=== PATIENT | female | born 1960 | race Caucasian/White ===

== ENCOUNTER 2017-03-26 08:41 | Observation (INO) ==
[2017-03-26] MEDS ORDERED: PANTOPRAZOLE 40 MG VIAL IV STA (09:17)
[2017-03-26] MEDS ORDERED: ONDANSETRON 4 MG/2 ML VIAL IV STA (09:17)
[2017-03-26] MEDS ORDERED: METOCLOPRAMIDE 10 MG/2 ML VIAL IV STA (09:17)
[2017-03-26] MEDS ORDERED: ASPIRIN 325 MG TABLET PO STA (09:17)
[2017-03-26] MEDS ORDERED: NITROGLYCERIN 2% OINT 1 INCH/GM PACK TOP STA (09:17)
[2017-03-26 09:23] LABS: Basophils % 0.1 % (0.0-0.8); Eosinophils % 0.1 % (0.00-10.9); Hematocrit 45.3 VOL% (35.7-47.0); Hemoglobin 15.7 GM/DL (12.0-16.0); Immature Granulocytes % 0.3 %; Immature Granulocytes Absolute 0.02 #; Lymphocytes # 2.4 10*3/uL (1.4-4.0); Lymphocytes % 32.3 % (21.3-54.2); Mean Corpuscular HGB Conc 34.7 GM/DL (32-36); Mean Corpuscular Hemoglobin 30 PG (27-34); Mean Corpuscular Volume 87.5 FL (87-102); Mean Platelet Volume 10.6 FL (9.6-12.0); Monocytes # 0.5 10*3/uL (0.11-0.8); Monocytes % 7.1 % (1.7-12.7); Neutrophils # 4.4 10*3/uL (1.4-7.4); Neutrophils % 60.1 % (38.7-73.9); Platelet Count 217 T/CUMM (130-400); Red Blood Count 5.18 MC/CUMM (3.8-5.5); Red Cell Distribution Width 11.9 % (9.3-17.3); White Blood Count 7.4 T/CUMM (4-12)
--- NOTE | 2017-03-26 09:26 | Emergency Department Note ---
Arrival - Arrival Chief Complaint: Chest Pain Stated Complaint: cp/sob ED Nursing Triage Note: PT C/O CHEST PAIN, SOB, AND UPPER BACK PAIN X2 WEEKS. + NAUSEA. PT IS OFF DIABETIC MEDICATION AT THIS TIME FOR FINANCIAL REASONS. Mode of Arrival: Wheelchair Limitations: No Limitations Source: Patient Time Seen by Provider: 03/26/17 09:16 - History of Present Illness HPI Narrative: This 56-year-old white female presents with 2 weeks of intermittent central chest pain radiating to the back. This has been associated with nausea but no shortness of breath, diaphoresis, or german vomiting. The patient states she has had a particularly bad problem with heartburn for the last 2 weeks following a bad bout of flu. Most notable is the fact the patient is diabetic and has not taken medication in some time. She denies polyuria polydipsia or polyphagia at this time. Currently she is pain-free and in no acute distress. She denies any prior history of cardiac disease or smoking but does have a strong family medical history for coronary artery disease.. Onset (ago): day(s) (Patient presents 2 days post onset of symptoms) Allergies/Adverse Reactions: Allergies Allergy/AdvReac Type Severity Reaction Status Date / Time adhesive tape Allergy Mild RASH Verified 03/26/17 08:59 Home Medications: Home Medications Medication Instructions Recorded Confirmed Type No Known Home Medications [No 04/29/16 04/29/16 History Known Home Medications] Review of System - Review of System 12 point system: reviewed and no additional remarkable complaints except as stated - Review of System Constitutional: Present: as per HPI Respiratory: Present: as per HPI Cardiovascular: Present: as per HPI Gastrointestinal: Present: as per HPI Endocrine: Present: as per HPI Medical,Surgical,& Family Hx - Medical History Cardio: History of: Hypertension Endocrine: History of: Diabetes Mellitus (NIDDM) - Surgical History Reproductive Surgeries: Surgical HX of;: Gynecologic Surgery - Social History Smoking Status: Never smoker Frequency of Alcohol Use: None Type of Drug Use: None Exam Physical Examination: GENERAL: Obese white female in no acute distress. HEENT: Normocephalic. No trauma. Moist mucous membranes. EOMI. PERRLA. ENT NML NECK: Supple. No adenopathy. CARDIAC: Regular. No murmurs. Heart rate 75 CHEST: Clear to auscultation. No respiratory distress. O2 sat 90% ABDOMEN: Soft. Nontender. Active bowel sounds. EXTREMITIES: No trauma. Normal ROM. No pedal edema. SKIN: No diaphoresis. No rash. NEURO: Alert. Neuro intact no focal deficits. Vital Signs: Vital Signs Temperature 98.0 F 03/26/17 09:00 Pulse Rate 75 03/26/17 09:00 Respiratory Rate 20 03/26/17 09:00 Blood Pressure 163/81 03/26/17 09:00 O2 Sat by Pulse Oximetry 100 03/26/17 09:00 Course - Reevaluation(s) Reevaluation #1: Advised patient with her cardiac symptoms, diagnostic testing findings and laboratory abnormalities that hospitalization at least overnight is warranted for further evaluation. - Consultations Consultation #1: Discussed with hospitalist service who will admit for further evaluation treatment. Results - Labs CBC & BMP: 03/26/17 09:13 03/26/17 09:24 - Impressions EKG: Sinus rhythm at 70 with normal IL interval and QRS duration. 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 Diffuse nonspecific ST changes without any acute injury pattern noted. Disposition Clinical Impression: Uncontrolled diabetes, Chest pain
[2017-03-26] MEDS ORDERED: ONDANSETRON 4 MG/2 ML VIAL ONE (09:40)
[2017-03-26] MEDS ORDERED: METOCLOPRAMIDE 10 MG/2 ML VIAL ONE (09:40)
[2017-03-26] MEDS ORDERED: NITROGLYCERIN 2% OINT 1 INCH/GM PACK TOP ONE (09:40)
[2017-03-26] MEDS ORDERED: PANTOPRAZOLE 40 MG VIAL IV ONE (09:40)
[2017-03-26] MEDS ORDERED: ASPIRIN 325 MG TABLET ONE (09:40)
--- NOTE | 2017-03-26 09:40 | XRay Report ---
History is chest pain Comparison 03/29/2011 The heart is enlarged. No overt congestive failure or confluent infiltrates seen Impression: Cardiomegaly without overt CHF PROCEDURE INTERPRETED AT [facility] DEPARTMENT OF RADIOLOGY Final Report Signed by: Dr. Carolina Decker
[2017-03-26 10:10] LABS: Alanine Aminotransferase 21 U/L (13-56); Albumin 3.4 G/DL (3.4-5.0); Alkaline Phosphatase 153 U/L (45-117); Amylase 28 U/L (25-115); Aspartate Amino Transferase 7 U/L (0-37); Blood Urea Nitrogen 11 MG/DL (7-18); Calcium 8.6 MG/DL (8.5-10.1); Glucose 453 MG/DL (74-106); Osmolality,Calculated 284.4 MOS/KG (273-304); Potassium 4.3 MMOL/L (3.5-5.1); Sodium 133 MMOL/L (136-145); Total Protein 6.5 G/DL (6.4-8.3); Troponin I Only < 0.015 NG/ML (0.00-0.045)
[2017-03-26 10:20] LABS: Apearance,Urine CLEAR (Clear); Bilirubin,Urine Negative (Negative); Blood, Urine Negative (Negative); Glucose,Urine (UA) >=500 mg/dL (Negative); Ketones,Urine 5 mg/dL (Negative); Nitrite,Urine Negative (Negative); Protein,Urine Negative; RBC,Urine <1 /HPF (0-4); Squamous Epithelial Cell,Urine Occasional /HPF (0-10); Urine Color Straw (Yellow); Urine Urobilinogen < 2.0 EU/DL (0.2-1.0); WBC,Urine 1 /HPF (0-6)
[2017-03-26 10:23] LABS: Barbiturates Screen,Urine Negative (Negative); Benzodiazepines Screen,Urine Negative (Negative); Cannabinoid Screen,Urine Negative (Negative); Opiate Screen,Urine Negative (Negative); Phencyclidine Screen,Urine Negative (Negative)
--- NOTE | 2017-03-26 11:41 | Hospitalist History & Physical ---
Assessment and Plan - Time spent with patient Time spent with patient: Greater than 30 minutes (1) Chest pain Status: Acute Assessment and plan: Patient with risk factors significant for: Obesity, family history, hypertension , diabetes mellitus. Presents with 2 weeks of intermittent chest pain and associated shortness of breath. Admit to monitored bed for observation. Trend cardiac enzymes and EKGs. Order echocardiogram. Cardiology consultation. Current Visit: Yes (2) Hypertension Status: Acute Current Visit: Yes (3) Hyperglycemia due to type 2 diabetes mellitus Status: Acute Assessment and plan: Accu-Cheks ACHS. Sliding scale insulin per protocol. Current Visit: Yes History of Present Illness Chief complaint: chest pain History of present illness: Ms. Levin is a 56 year old white female with a past medical history significant for hypertension and diabetes mellitus who presents to the ED today with complaints of intermittent chest pain with associated SOB for the past 2 weeks. The patient and her , who is at bedside, report a strong family history of heart problems and myocardial infarctions requiring CABG. Patient describes her chest pain as a substernal pressure that radiated to her left shoulder blade. she rates the pain a 7/10. She also reports nausea without vomiting, headache, shortness of breath and intermittent dizziness. She denies blurry vision, numbness/tingling, or edema. EKG does show evidence prior MIs. She further reports simply not feeling well this morning with the assumption that her blood glucose was too low; she drank a cup of orange juice and a snack. She is hyperglycemic on admission. Patient states that she and her both have been without a job for some time and subsequently without insurance. She has not been taking her metformin. Lab work reveals: Normal hematology, sodium 133, potassium 4.3, BUN 11, creatinine 0.70, serum glucose 453, alkaline phosphatase 153. Cardiac enzymes are negative. BNP is 30. UA is negative for infection. Given the patient's family history and recent personal history, she will be admitted to the hospital medicine service for observation and further treatment. This case has been discussed with both Dr. Conn, ER physician, and Dr. Viera, admitting physician. Patient is a full code and makes her own medical decisions. Home medications have been reviewed and reconciled. Home Medications Medication Instructions Recorded Confirmed Type No Known Home Medications [No 04/29/16 04/29/16 History Known Home Medications] Allergies Allergy/AdvReac Type Severity Reaction Status Date / Time adhesive tape Allergy Mild RASH Verified 03/26/17 08:59 Medical,Surgical,& Family Hx - Medical History Cardio: History of: Hypertension Endocrine: History of: Diabetes Mellitus (NIDDM) - Surgical History Reproductive Surgeries: Surgical HX of;: Section (2), Gynecologic Surgery (Oophorectomy 1), Tubal Ligation - Family History Family History: Reports;: Family Diabetes, Family Heart Disease, Family Hypertension - Social History Smoking Status: Never smoker Frequency of Alcohol Use: None Type of Drug Use: None Marital Status: Lives With:: Spouse Functional capacity: independent ambulation 12 point system: reviewed and no additional remarkable complaints except as stated Exam - Constitutional Vitals: Period Temp Pulse Resp BP Sys/Andre Pulse Ox Last 24 Hr 98.0 F-98.0 F 71-75 18-20 122-163/52-81 98-100 Exam: General appearance: Obese, no acute distress - Head Head exam: Present: normocephalic, atraumatic - Eye Eye exam: Present: EOMI. Absent: conjunctival injection, nystagmus Pupils: Present: SAKINA, normal accommodation - ENT ENT exam: Present: normal exam, normal external ear exam - Neck Neck exam: Present: normal inspection. Absent: lymphadenopathy, tenderness, thyromegaly - Respiratory Respiratory exam: Present: clear to auscultation bilaterally. Absent: rales, rhonchi, wheezes - Cardiovascular Cardiovascular exam: Present: regular rate and rhythm. Absent: carotid bruit, gallop, rubs - GI/Abdominal GI/Abdominal exam: Present: normal bowel sounds. Absent: ascites, distended, mass - Extremities Exam Extremities exam: Present: normal inspection, normal capillary refill. Absent: edema - Back Exam Back exam: Absent: CVA tenderness (L), CVA tenderness (R) - Neurological Exam Neurological exam: Present: alert, oriented X3, CN II-XII intact, reflexes normal - Psychiatric Psychiatric exam: Present: normal affect, normal mood - Skin Skin exam: Present: normal color, warm, dry Results - Labs CBC & BMP: 03/26/17 09:13 03/26/17 09:24 Lab Results: I have reviewed the past 24 hour labs - EKG EKG results: interpreted by ERMD - Diagnostic Findings Procedure: Chest x-ray: image reviewed by me, report reviewed by me ( Cardiomegaly without overt CHF)
[2017-03-26] MEDS ORDERED: DEXTROSE 50% 25 GM/50 ML VIAL IV PRN (12:02)
[2017-03-26] MEDS ORDERED: GLUCAGON 1 MG VIAL IM PRN (12:02)
[2017-03-26] MEDS: LISINOPRIL 5 MG TABLET PO SCH (13:39)
[2017-03-26] MEDS: INSULIN LISPRO 100 UNIT/ML SUBCUT SCH ×3 (13:40→22:40)
[2017-03-26] MEDS: PANTOPRAZOLE 40 MG TABLET PO SCH (13:45)
[2017-03-26] MEDS: ASPIRIN EC 325 MG TABLET PO SCH (13:45)
--- NOTE | 2017-03-26 13:58 | Order Completion Report ---
See report scanned to EMR
--- NOTE | 2017-03-26 15:10 | Order Completion Report ---
See report scanned to EMR
[2017-03-26] MEDS ORDERED: INFLUENZA VIRUS VACCINE 0.5 ML SYRINGE IM ONE (15:39)
[2017-03-26] MEDS ORDERED: PNEUMOCOCCAL VACCINE (13 VALENT) 0.5 ML SYRINGE IM ONE (15:42)
[2017-03-26] MEDS: ENOXAPARIN 40 MG/0.4 ML SYRINGE SUBCUT SCH (15:53)
[2017-03-26] MEDS: metFORMIN 500 MG TABLET PO SCH (16:54)
--- NOTE | 2017-03-26 16:59 | Order Completion Report ---
See report scanned to EMR
[2017-03-26 17:18] LABS: Free T4 (Free Thyroxine) 1.29 NG/DL (0.76-1.46); Thyroid Stimulating Hormone 1.02 uIU/ml (0.358-3.74)
[2017-03-26] MEDS ORDERED: CARVEDILOL 3.125 MG TABLET PO ONE (17:54)
[2017-03-26] MEDS ORDERED: ASPIRIN CHEW 81 MG TABLET PO ONE (17:54)
[2017-03-26] MEDS ORDERED: ENOXAPARIN 60 MG/0.6 ML SYRINGE SUBCUT ONE (17:55)
[2017-03-26] MEDS: CARVEDILOL 3.125 MG TABLET PO SCH (21:10)
--- NOTE | 2017-03-26 22:33 | Cardiology Consult Note ---
I, Yasmin Marie RN, am scribing for, and in the presence of, George Quinn MD 22:33. Assessment and Plan - Time spent with patient Time spent with patient: Greater than 30 minutes (Due to assessment, planning, documentation, medication review) (1) Chest pain Status: Acute Assessment and plan: Initial assessment and plan March 26, 2017: Many features of her chest pain sound like progressive angina Response to nitroglycerin, mid chest, tightness I discussed the risk and benefits of evaluating either with the heart cath or treadmill/Cardiolite. She and her wants a heart cath Left heart cath and possible PTCA or stent were discussed with the patient. The risk of the procedure include but are not limited to a small risk of injury to the vessel, abnormal heart rhythm, stroke, heart attack, need for emergent surgery, contrast reaction, restenosis, infection, or . The patient voices understanding, agrees with the plan, and desires to proceed with the heart catheterization. Heart cath will be done tomorrow at about 1030 We will start on carvedilol 3.125 mg p.o. 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 Levin is a 56 year old female who says she has seen a pediatric physical therapy assistant more than 10 years ago, she is not sure who it was. She says she did have a stress test done at that time that she was told was normal. She denies ever having had a heart catheterization done. She has a history of hypertension and diabetes. Family history is significant for CAD, hypertension, and diabetes. She reports she is a lifetime non-smoker. Ms. Levin reports she has been having chest discomfort and shortness of breath off and on for about 2 weeks. This morning the pain woke her up, was more severe, and lasted longer. She describes it as a spasm in the center of her chest that would get her back. She can identify no alleviators or triggers at home. She rated a 9 on a scale of 1-10. This pain was also associated with shortness of breath, cough, nausea, and palpitations. She also reports having had a headache this morning. She presented to the emergency department for further evaluation. Cardiac biomarkers have been negative. EKG did not indicate an acute WI. She was given Nitro-Bid ointment in the emergency department, she states this did improve her pain. She is currently resting in bed with her at bedside. She is pain-free at this time, but states the pain will occasionally occur along with palpitations and shortness of breath. She rates the pain when it does occur as a 4 on a scale of 1-10. CC: Vero Viera MD - Home Medications and Allergies Home Medications: Home Medications Medication Instructions Recorded Confirmed Type No Known Home Medications [No 04/29/16 04/29/16 History Known Home Medications] Allergies/Adverse Reactions: Allergies Allergy/AdvReac Type Severity Reaction Status Date / Time adhesive tape Allergy Mild RASH Verified 03/26/17 08:59 - Constitutional Constitutional: Present: as per HPI - EENT Eyes: Present: blurry vision, requires corrective lense Ears: Absent: decreased hearing, ear pain, tinnitus Nose, mouth and throat: Present: headache(s). Absent: epistaxis, neck pain - Cardiovascular Cardiovascular: Present: chest pain at rest, chest pain with activity, dyspnea, dyspnea on exertion, edema, lightheadedness, palpitations. Absent: radiating jaw, neck or arm pain, orthopnea - Respiratory Respiratory: Present: cough, dyspnea, dyspnea on exertion. Absent: hemoptysis, wheezing - Gastrointestinal Gastrointestinal: Present: constipation (i), nausea. Absent: abdominal pain, hematemesis, hematochezia, melena, vomiting - Genitourinary Genitourinary: Absent: dysuria, hematuria - Musculoskeletal Musculoskeletal: Present: limited range of motion. Absent: back pain - Neurological Neurological: Present: dizziness, frequent falls, headache(s). Absent: confusion, syncope - Psychiatric Psychiatric: Absent: anxiety, depression - Hematologic/Lymphatic Hematologic/Lymphatic: Present: easy bruising. Absent: easy bleeding Medical,Surgical,& Family Hx - Medical History Cardio: History of: Hypertension Endocrine: History of: Diabetes Mellitus (NIDDM) - Surgical History Reproductive Surgeries: Surgical HX of;: Section (2), Gynecologic Surgery (Oophorectomy 1), Tubal Ligation - Family History Family History: Reports;: Family Cancer (Father with lung cancer), Family Diabetes (Father), Family Heart Disease (Father), Family Hypertension (Mother, father) - Social History Smoking Status: Never smoker Have you smoked in the last 12 months: No Frequency of Alcohol Use: Rarely Type of Drug Use: None Marital Status: Lives With:: Spouse Functional capacity: independent ambulation Physical Examination Vital Signs Temp Pulse Resp BP Pulse Ox 98.0 F 75 18 163/81 98 03/26/17 08:41 03/26/17 08:41 03/26/17 08:41 03/26/17 08:41 03/26/17 08:41 General: Present: Appears Well, No Apparent Distress HEENT: Present: PERRL, Mucus Membranes Moist Neck: Present: Supple Neck, Midline Trachea, No Bruit Cardiac: Present: Reg Rate and Rhythm, No Murmur Lungs: Present: Normal Breath Sounds, No Wheeze, Rales, Rhonchi Neuro: Absent: Resting Tremor, Essential Tremor Abdomen: Present: Soft, Active Bowel Sounds, Non-Tender. Absent: Distended Skin: Absent: Rash, Suspicious Lesions Extremities: Present: Normal Upper Extr. Pulses, Normal Lower Extr. Pulses, Edema (To bilateral lower extremities) Result/EKG - Labs CBC & BMP: 03/26/17 09:13 03/26/17 09:24 Lab Results: I have reviewed the past 24 hour labs Labs: Laboratory Results - last 24 hr 03/26/17 03/26/17 03/26/17 09:13 09:13 09:13 WBC 7.4 RBC 5.18 Hgb 15.7 Hct 45.3 MCV 87.5 MCH 30 MCHC 34.7 RDW 11.9 Plt Count 217 MPV 10.6 Neut % (Auto) 60.1 Lymph % (Auto) 32.3 [place] % (Auto) 7.1 Eos % (Auto) 0.1 Baso % (Auto) 0.1 Neut # (Auto) 4.4 Lymph # (Auto) 2.4 [place] # (Auto) 0.5 Eos # (Auto) 0.0 Baso # (Auto) 0.0 Immature Gran % 0.3 Nucleated RBC % 0.0 Immature Gran # 0.02 Nucleated RBCs # 0.00 Immature Plt Fraction 0.0 Sodium Potassium Chloride Carbon Dioxide Anion Gap BUN Creatinine GFR Calculation BUN/Creatinine Ratio Glucose POC Glucose Hemoglobin A1c Calculated Osmolality Calcium Total Bilirubin AST ALT Alkaline Phosphatase Total Creatine Kinase CK-MB (CK-2) Troponin I B-Natriuretic Peptide Total Protein Albumin Globulin Albumin/Globulin Ratio Amylase Lipase Urine Color Straw Urine Appearance Clear Urine pH 7.0 Ur Specific [place] 1.030 Urine Protein Negative Urine Glucose (UA) >=500 Urine Ketones 5 Urine Blood Negative Urine Nitrate Negative Urine Bilirubin Negative Urine Urobilinogen < 2.0 H Urine Leukocytes Negative Urine RBC <1 Urine WBC 1 Ur Squamous Epith Cells Occasional Ur Culture Indicated? Not indicated Urine Opiates Screen Negative Ur Barbiturates Screen Negative Ur Phencyclidine Scrn Negative U Amphetamine/Methamph Negative U Benzodiazepines Scrn Negative U Cocaine Metab Screen Negative U Cannabinoids Screen Negative 03/26/17 03/26/17 03/26/17 09:24 09:24 09:24 WBC RBC Hgb Hct MCV MCH MCHC RDW Plt Count MPV Neut % (Auto) Lymph % (Auto) [place] % (Auto) Eos % (Auto) Baso % (Auto) Neut # (Auto) Lymph # (Auto) [place] # (Auto) Eos # (Auto) Baso # (Auto) Immature Gran % Nucleated RBC % Immature Gran # Nucleated RBCs # Immature Plt Fraction Sodium 133 L Potassium 4.3 Chloride 98 Carbon Dioxide 27 Anion Gap 12.3 BUN 11 Creatinine 0.70 GFR Calculation 119 BUN/Creatinine Ratio 15.00 Glucose 453 H POC Glucose Hemoglobin A1c Calculated Osmolality 284.4 Calcium 8.6 Total Bilirubin 0.70 AST 7 ALT 21 Alkaline Phosphatase 153 H Total Creatine Kinase 48 CK-MB (CK-2) < 1.0 Troponin I < 0.015 < 0.015 B-Natriuretic Peptide 30 Total Protein 6.5 Albumin 3.4 Globulin 3.1 Albumin/Globulin Ratio 1.0 L Amylase 28 Lipase 136.0 Urine Color Urine Appearance Urine pH Ur Specific [place] Urine Protein Urine Glucose (UA) Urine Ketones Urine Blood Urine Nitrate Urine Bilirubin Urine Urobilinogen Urine Leukocytes Urine RBC Urine WBC Ur Squamous Epith Cells Ur Culture Indicated? Urine Opiates Screen Ur Barbiturates Screen Ur Phencyclidine Scrn U Amphetamine/Methamph U Benzodiazepines Scrn U Cocaine Metab Screen U Cannabinoids Screen 03/26/17 03/26/17 03/26/17 12:31 12:31 12:46 WBC RBC Hgb Hct MCV MCH MCHC RDW Plt Count MPV Neut % (Auto) Lymph % (Auto) [place] % (Auto) Eos % (Auto) Baso % (Auto) Neut # (Auto) Lymph # (Auto) [place] # (Auto) Eos # (Auto) Baso # (Auto) Immature Gran % Nucleated RBC % Immature Gran # Nucleated RBCs # Immature Plt Fraction Sodium Potassium Chloride Carbon Dioxide Anion Gap BUN Creatinine GFR Calculation BUN/Creatinine Ratio Glucose POC Glucose 337 H Hemoglobin A1c 12.5 H Calculated Osmolality Calcium Total Bilirubin AST ALT Alkaline Phosphatase Total Creatine Kinase CK-MB (CK-2) Troponin I < 0.015 B-Natriuretic Peptide Total Protein Albumin Globulin Albumin/Globulin Ratio Amylase Lipase Urine Color Urine Appearance Urine pH Ur Specific [place] Urine Protein Urine Glucose (UA) Urine Ketones Urine Blood Urine Nitrate Urine Bilirubin Urine Urobilinogen Urine Leukocytes Urine RBC Urine WBC Ur Squamous Epith Cells Ur Culture Indicated? Urine Opiates Screen Ur Barbiturates Screen Ur Phencyclidine Scrn U Amphetamine/Methamph U Benzodiazepines Scrn U Cocaine Metab Screen U Cannabinoids Screen - Diagnostic Findings Procedure: Chest x-ray: report reviewed by me - EKG EKG results: interpreted by me EKG shows: sinus rhythm IKai Dale, MD, personally performed the services described in this documentation, ascribed by Yasmin Marie RN in my presence, and it is both accurate and complete 233 .
--- NOTE | 2017-03-26 22:34 | History and Physical Update ---
Sedation H&P Update - History and Physical H&P was reviewed, the patient examined and there: are no changes in the patients condition since last H&P was completed. - Dictation Physical: refer to H&P completed by admitting physician (And also to my consult today) - Physical Exam Mental Status: alert and oriented Heart: regular rate and rhythm Lung: clear to auscultation Abdomen: within normal limits Vitals: within normal limits - Sedation Plan for Sedation: minimal Patient Consent: Procedure disscussed with patient and patinet has consented., Risks and benefits were discussed with patient,including infection,, bleeding, injury to surrounding structures, seizure, temporary nerve, Patient understands and accepts potential risks/benefits and agrees to, proceed. ASA Class: II Airway Assessment: Class II: Soft palate, uvula, fauces visible
[2017-03-27 06:59] LABS: Basophils % 0.2 % (0.0-0.8); Eosinophils % 0.1 % (0.00-10.9); Hematocrit 44.7 VOL% (35.7-47.0); Hemoglobin 15.1 GM/DL (12.0-16.0); Immature Granulocytes % 0.2 %; Immature Granulocytes Absolute 0.02 #; Lymphocytes # 3.3 10*3/uL (1.4-4.0); Lymphocytes % 37.7 % (21.3-54.2); Mean Corpuscular HGB Conc 33.8 GM/DL (32-36); Mean Corpuscular Hemoglobin 30 PG (27-34); Mean Platelet Volume 11.7 FL (9.6-12.0); Monocytes # 0.5 10*3/uL (0.11-0.8); Monocytes % 5.8 % (1.7-12.7); Neutrophils # 4.9 10*3/uL (1.4-7.4); Platelet Count 234 T/CUMM (130-400); Red Blood Count 5.08 MC/CUMM (3.8-5.5); White Blood Count 8.8 T/CUMM (4-12)
[2017-03-27 07:39] LABS: Calcium 8.5 MG/DL (8.5-10.1); Osmolality,Calculated 285.5 MOS/KG (273-304); Potassium 4.2 MMOL/L (3.5-5.1); VLDL CHOLESTEROL 33.8 MG/DL
[2017-03-27 07:40] LABS: Risk Ratio 5.44
[2017-03-27] MEDS: INSULIN LISPRO 100 UNIT/ML SUBCUT SCH ×4 (07:40→20:14)
[2017-03-27] MEDS ORDERED: MAGNESIUM SULF RIDER 2 GM in PREMIX 1 EACH IV PRN (07:44)
[2017-03-27] MEDS ORDERED: diphenhydrAMINE CAP 25 MG CAPSULE PO ONE (07:44)
[2017-03-27] MEDS ORDERED: POTASSIUM CHLORIDE RIDER 10 MEQ in PREMIX 1 EACH IV PRN (07:44)
[2017-03-27] MEDS ORDERED: DIAZEPAM 5 MG TABLET PO ONE (07:44)
[2017-03-27] MEDS ORDERED: SODIUM CHLORIDE 0.45% 1,000 ML IV SCH (08:00)
[2017-03-27] MEDS: LISINOPRIL 5 MG TABLET PO SCH (09:47)
[2017-03-27] MEDS: ASPIRIN EC 325 MG TABLET PO SCH (09:47)
[2017-03-27] MEDS: metFORMIN 500 MG TABLET PO SCH ×2 (09:48→17:46)
[2017-03-27] MEDS: PANTOPRAZOLE 40 MG TABLET PO SCH (09:48)
[2017-03-27] MEDS: CARVEDILOL 3.125 MG TABLET PO SCH ×2 (09:48→20:14)
--- NOTE | 2017-03-27 10:14 | Hospitalist Progress Note ---
Assessment and Plan (1) Chest pain Status: Acute Assessment and plan: 03/27 -patient reports no chest pain this morning. Echocardiogram noted to reveal EF of 65% without any significant valvular abnormalities. Patient is scheduled for a left heart catheterization this morning. Patient with risk factors significant for: Obesity, family history, hypertension , diabetes mellitus. Presents with 2 weeks of intermittent chest pain and associated shortness of breath. Admit to monitored bed for observation. Trend cardiac enzymes and EKGs. Order echocardiogram. Cardiology consultation. Current Visit: Yes (2) Hypertension Status: Chronic Assessment and plan: 03/27 -well controlled on Coreg 3.125 and lisinopril 5 mg. Continue to monitor BP Current Visit: Yes (3) Hyperglycemia due to type 2 diabetes mellitus Status: Acute Assessment and plan: 03/27 -metformin has been resumed. Continue sliding scale and adjust accordingly. Accu-Cheks ACHS. Sliding scale insulin per protocol. Current Visit: Yes Hospitalist: Subjective Interval history: Patient seen and examined. She reports no acute events overnight. She does report she is feeling a little better this morning. Cardiology is following and recommends a left heart catheterization this morning. Echocardiogram has been noted and reveals no significant valvular abnormalities with an EF of 65%. Patient has been restarted on metformin as well as carvedilol and lisinopril. Blood pressure is well-controlled at this morning. Await results of left heart catheterization. Exam - Constitutional Vitals: Period Temp Pulse Resp BP Sys/Andre Pulse Ox Last 24 Hr 97.3 F-98.7 F 64-76 18-20 108-147/56-72 94-99 Exam: General: No acute distress Heart: RRR; no gallops, murmurs, rubs, clicks Lungs: CTA bilaterally; no wheezes, rales, rhonchi Abdomen: NBS, soft, nontender, no masses Extremities: trace edema in Ble; no cyanosis, clubbing Neuro: AAOx3 Results - Labs CBC & BMP: 03/27/17 04:52 03/27/17 04:52 Lab Results: I have reviewed the past 24 hour labs
[2017-03-27] MEDS ORDERED: MEPERIDINE 25 MG/1 ML VIAL ONE (10:35)
[2017-03-27] MEDS ORDERED: MIDAZOLAM 2 MG/2 ML VIAL ONE (10:35)
[2017-03-27] MEDS ORDERED: LIDOCAINE 1% 20 ML VIAL ONE (10:35)
--- NOTE | 2017-03-27 11:29 | Operative Note ---
Date of procedure: 03/27/17 Procedure Preformed: Left heart cath Coronary angiography Left ventriculography Angiogram of the right femoral artery Angio-Seal of the right femoral artery-successful Surgeon / Physician: George Quinn Junior Software Developer: Kelsey Santana Post-op diagnosis: same (Progressive chest pain suggestive of unstable angina, diabetes, hypertension, overweight, multiple risk factors for coronary disease, family history of coronary disease) Findings: Impression: No significant coronary disease-minimal luminal irregularities Right dominant coronary arterial system Mild to moderate distal vessel tortuosities Moderate elevation of LVEDP, 20 mmHg Normal global/regional LV systolic function, LVEF 55% Angiogram of the right femoral artery Angio-Seal of the right femoral artery--successful Plan/recommendations: Based on this study, the patient's chest pain is not due to fixed, obstructive coronary disease. I suspect it is either GI or muscle skeletal related. The plan at this point would be to treat empirically for these, reassure her, discharge her tomorrow, and see her back in follow-up. If further outpatient evaluation is needed, it could be done. Mainly will give reassurance. Meanwhile, she does have mild, nonobstructive coronary disease. We will treat these findings by optimizing risk factor management. The patient will be on antiplatelet medications to include aspirin indefinitely . Follow-up will be scheduled. Addenda: I saw the patient post-cath. the groin puncture site and distal pulse are stable. vital signs are stable and the patient will be observed closely overnight. Specimens: none sent Estimated blood loss: minimal Condition: stable Anesthesia: local, conscious sedation Disposition: floor
[2017-03-27] MEDS ORDERED: GLUCAGON 1 MG VIAL IM PRN (13:40)
[2017-03-27] MEDS ORDERED: ACETAMINOPHEN 325 MG TABLET PO PRN (13:40)
[2017-03-27] MEDS ORDERED: ACETAMINOPHEN/CODEINE 300-30 MG TABLET PO PRN (13:40)
[2017-03-27] MEDS: ENOXAPARIN 40 MG/0.4 ML SYRINGE SUBCUT SCH (17:46)
[2017-03-28 05:01] LABS: Basophils % 0.1 % (0.0-0.8); Eosinophils % 0.3 % (0.00-10.9); Hematocrit 41.9 VOL% (35.7-47.0); Immature Granulocytes % 0.4 %; Immature Granulocytes Absolute 0.03 #; Lymphocytes # 3.1 10*3/uL (1.4-4.0); Lymphocytes % 42.9 % (21.3-54.2); Mean Corpuscular HGB Conc 33.4 GM/DL (32-36); Mean Corpuscular Hemoglobin 30 PG (27-34); Mean Corpuscular Volume 89.3 FL (87-102); Mean Platelet Volume 11.4 FL (9.6-12.0); Monocytes # 0.6 10*3/uL (0.11-0.8); Monocytes % 7.6 % (1.7-12.7); Neutrophils # 3.5 10*3/uL (1.4-7.4); Neutrophils % 48.7 % (38.7-73.9); Platelet Count 179 T/CUMM (130-400); Red Blood Count 4.69 MC/CUMM (3.8-5.5); White Blood Count 7.2 T/CUMM (4-12)
[2017-03-28 05:37] LABS: Calcium 8.4 MG/DL (8.5-10.1); Osmolality,Calculated 284.7 MOS/KG (273-304); Potassium 4.2 MMOL/L (3.5-5.1)
--- NOTE | 2017-03-28 07:39 | Order Completion Report ---
See report scanned to EMR
[2017-03-28] MEDS: GLIMEPIRIDE 2 MG TABLET PO SCH (08:18)
[2017-03-28] MEDS: ASPIRIN EC 325 MG TABLET PO SCH (08:18)
[2017-03-28] MEDS: PANTOPRAZOLE 40 MG TABLET PO SCH (08:18)
[2017-03-28] MEDS: LISINOPRIL 5 MG TABLET PO SCH (08:18)
[2017-03-28] MEDS: metFORMIN 500 MG TABLET PO SCH (08:18)
[2017-03-28] MEDS: CARVEDILOL 3.125 MG TABLET PO SCH (08:18)
[2017-03-28] MEDS: INSULIN LISPRO 100 UNIT/ML SUBCUT SCH ×4 (08:24→20:19)
[2017-03-28] MEDS: ASPIRIN CHEW 81 MG TABLET PO SCH (11:17)
--- NOTE | 2017-03-28 11:58 | Hospitalist Progress Note ---
Assessment and Plan (1) Chest pain Status: Acute Assessment and plan: 03/28 -chest pain resolved. Left heart cath revealed no significant coronary obstruction though there is some luminal abnormalities. Cardiology recommends indefinite antiplatelet therapy to include aspirin. She will be discharged home on Crestor 5 and a daily baby aspirin. 03/27 -patient reports no chest pain this morning. Echocardiogram noted to reveal EF of 65% without any significant valvular abnormalities. Patient is scheduled for a left heart catheterization this morning. Patient with risk factors significant for: Obesity, family history, hypertension , diabetes mellitus. Presents with 2 weeks of intermittent chest pain and associated shortness of breath. Admit to monitored bed for observation. Trend cardiac enzymes and EKGs. Order echocardiogram. Cardiology consultation. Current Visit: Yes (2) Hypertension Status: Chronic Assessment and plan: 03/27 -well controlled on Coreg 3.125 and lisinopril 5 mg. Continue to monitor BP Current Visit: Yes (3) Hyperglycemia due to type 2 diabetes mellitus Status: Acute Assessment and plan: 03/28 -and Amaryl 2 mg p.o. daily and increase metformin to 50 mg p.o. twice daily 03/27 -metformin has been resumed. Continue sliding scale and adjust accordingly. Accu-Cheks ACHS. Sliding scale insulin per protocol. Current Visit: Yes Hospitalist: Subjective Interval history: Patient seen and examined in her room today. She is 1 day status post left heart catheterization. Per cath report there is no evidence of coronary obstruction though there is some luminal abnormalities. Cardiology recommends Crestor 5 mg and daily baby aspirin upon discharge. Patient has no complaints and reports she is feeling much better today. However, her blood sugars are still uncontrolled. Will add glimepiride 2 mg daily with meals and increase her metformin to 850 mg p.o. twice daily. Plan for discharge in the a.m. Exam - Constitutional Vitals: Period Temp Pulse Resp BP Sys/Andre Pulse Ox Last 24 Hr 96.9 F-98.7 F 59-96 18-20 112-145/57-78 91-97 Exam: General: No acute distress Heart: RRR; no gallops, murmurs, rubs, clicks Lungs: CTA bilaterally; no wheezes, rales, rhonchi Abdomen: NBS, soft, nontender, no masses Extremities: trace edema in Ble; no cyanosis, clubbing Neuro: AAOx3 Results - Labs CBC & BMP: 03/28/17 03:45 03/28/17 03:45 Lab Results: I have reviewed the past 24 hour labs Quality Measures - VTE Contraindication to Pharmacological VTE Prophylaxis: High Risk of Bleeding Specialty Discharge - Follow Up or Referrals Follow up with: George Quinn MD [Physician] - (4-6 weeks)
[2017-03-28] MEDS: metFORMIN 850 MG TABLET PO SCH (16:50)
[2017-03-28] MEDS: ENOXAPARIN 40 MG/0.4 ML SYRINGE SUBCUT SCH (16:53)
[2017-03-28] MEDS: CARVEDILOL 6.25 MG TABLET PO SCH (20:19)
[2017-03-28] MEDS ORDERED: ROSUVASTATIN 10 MG TABLET PO SCH (21:00)
[2017-03-29] MEDS: GLIMEPIRIDE 2 MG TABLET PO SCH (08:23)
[2017-03-29] MEDS: metFORMIN 850 MG TABLET PO SCH (08:23)
[2017-03-29] MEDS: INSULIN LISPRO 100 UNIT/ML SUBCUT SCH ×2 (08:24→11:27)
[2017-03-29] MEDS: CARVEDILOL 6.25 MG TABLET PO SCH (08:34)
[2017-03-29] MEDS: ASPIRIN CHEW 81 MG TABLET PO SCH (08:34)
[2017-03-29] MEDS: LISINOPRIL 5 MG TABLET PO SCH (08:34)
[2017-03-29] MEDS: PANTOPRAZOLE 40 MG TABLET PO SCH (08:36)
--- NOTE | 2017-03-29 10:17 | Discharge Summary ---
<HumzaAbdoulaye - Last Filed: 03/29/17 11:20> Hospital Course - Hospital Course Hospital Course: Ms. Levin is a 56-year-old white female who presented to the emergency room on on 03/26/2017 with complaints of worsening chest pain and hyperglycemia. At the time of her ED evaluation, the patient's chest pain symptoms had resolved, however given her recent history and family history the patient was admitted to the hospital medicine service for further evaluation and treatment. Cardiology was consulted and decided to perform a left heart catheterization on 03/27/2017 which revealed no significant coronary obstruction with some luminal abnormalities. Cardiology recommended indefinite antiplatelet therapy to include daily aspirin and lipid-lowering agents. The remainder of her hospital course was relatively uncomplicated highlighted by management of her diabetes. Patient was started on Amaryl and her Glucophage was increased in addition to sliding scale insulin. At this time, the patient has reached maximum benefit from hospitalization and is stable for discharge. Patient does not have health insurance and as such case management has been assisting her with become qualified to be seen at the local [facility]. Upon discharge, the patient has been instructed to follow-up with Dr. Quinn in 4-6 weeks and to establish care with the [facility] within 2 weeks. New medications at discharge to include Coreg 3.125 mg, aspirin 81 mg, lovastatin 10 mg, Levemir 10 units qhs, amaryl 4mg daily. - Time spent with patient Time with patient DS: Greater than 30 minutes Diagnosis - Discharge Diagnosis (1) Chest pain Status: Acute (2) Hypertension Status: Chronic (3) Hyperglycemia due to type 2 diabetes mellitus Status: Acute Specialty Discharge - Follow Up or Referrals Follow up with: George Quinn MD [Physician] - (4-6 weeks) Discharge Plan - Discharge Data Disposition: Disch To Home/Self Care Condition at Discharge: Stable Discharge Diet: heart healthy Activity: resume usual activities as tolerated Hygiene: no restrictions Weight Bearing at Discharge: full weight bearing Driving: no restrictions Contact your physician if you experience:: fever over 101, Shortness of breath, Bleeding - Discharge Medications New Aspirin Chew Tab 81 mg PO DAILY tablet Glimepiride [Amaryl] 4 mg PO DAILY W/BREAKFAST #30 tablet Lovastatin 10 mg PO BEDTIME #30 tablet Ranitidine Tab [Zantac Tab] 150 mg PO DAILY #30 tablet metFORMIN [Glucophage] 1,000 mg PO BID W/MEALS #60 tablet Carvedilol [Coreg] 3.125 mg PO BID #30 tablet Insulin Detemir [Levemir] 10 unit SUBCUT DAILY #3 ml Sertraline [Zoloft] 25 mg PO BEDTIME #30 tablet No Action No Known Home Medications [No Known Home Medications] - Follow Up or Referral Follow Up: George Quinn MD [Physician] - (4-6 weeks) - Forms/Instructions Instructions: Left Heart Catheterization (DC), Heart Healthy Diet (GEN), Coronary Artery Disease in Women (GEN), Acute Coronary Syndrome Exam - Constitutional Vitals: Period Temp Pulse Resp BP Sys/Andre Pulse Ox Last 24 Hr 97.0 F-98.7 F 50-82 18-20 106-128/54-71 91-95 Exam: General: No acute distress Heart: RRR; no gallops, murmurs, rubs, clicks Lungs: CTA bilaterally; no wheezes, rales, rhonchi Abdomen: NBS, soft, nontender, no masses Extremities: no cyanosis, edema, clubbing Neuro: AAOx3 Discharge Results Procedures and tests throughout hospitalization: Pending Orders 03/28/17 17:23 C. Diff Toxins A & B Routine Occult Blood, Stool Routine Stool Culture Routine 03/28/17 17:26 OCP [Parasitic Examination] Routine Labs on day of discharge: Labs from last 24 hours 03/29/17 03/29/17 03/28/17 11:05 07:24 18:42 POC Glucose 325 H 296 H 319 H 03/28/17 03/28/17 15:37 11:43 POC Glucose 222 H 280 H DS: Provider Date of admission: 03/26/17 10:27 Primary care physician: . No PCP Attending physician on admission: Vero Viera MD Consults: 03/26/17 12:02 Consult to Physician [CONS] Routine Comment: Consulting Provider: Cardiology - [facility] Consulting Provider Notified: Yes When should Consulting Provider be notified: Now Consult to Specialist Group: Cardiology When should Consulting Provider be notified: Now Person Notified: MAX Date Notified: 03/26/17 Time Notified: 12:35 03/26/17 15:25 Consult to [facility], Educator [CONS] Routine Reason for Low Pressure Boiler Operator: Diabetes Education 03/27/17 13:41 Consult to Cardiac Rehabilitation [CONS] Routine Reason for Cardiac Rehabilitation: Risk Factor Modification Other Consult Comment: Evaluate and recommend 03/28/17 13:04 Consult to Diabetes Center, Educator [CONS] Routine Reason for Low Pressure Boiler Operator: Diabetes Education Discharging clinician: Abdoulaye MARTINS <Vero Viera - Last Filed: 03/29/17 12:07> Diagnosis - Discharge Diagnosis (1) Chest pain Status: Acute (2) Hypertension Status: Chronic (3) Hyperglycemia due to type 2 diabetes mellitus Status: Acute Discharge Plan - Forms/Instructions Additional Discharge Instructions: Follow with PCP in 1week Exam - Constitutional General appearance: no acute distress - Head Head exam: Present: normal inspection - Eye Eye exam: Present: EOMI - Respiratory Respiratory exam: Present: clear to auscultation bilaterally - Cardiovascular Cardiovascular exam: Present: regular rate and rhythm - GI/Abdominal GI/Abdominal exam: Present: normal bowel sounds - Extremities Exam Extremities exam: Present: normal inspection - Neurological Exam Neurological exam: Present: alert, oriented X3
[2017-03-29] MEDS ORDERED: SERTRALINE 25 MG TABLET PO SCH ×2 (11:00→21:00)
[2017-03-29 11:31] VITALS: BP 127/71
--- NOTE | 2017-03-29 14:01 | Cardiology Progress Note ---
Nuvia, Yasmin Marie RN, am scribing for, and in the presence of, George Quinn MD 14:01. Assessment and Plan (1) Chest pain Status: Acute Assessment and plan: Initial assessment and plan March 26, 2017: Many features of her chest pain sound like progressive angina Response to nitroglycerin, mid chest, tightness I discussed the risk and benefits of evaluating either with the heart cath or treadmill/Cardiolite. She and her wants a heart cath Left heart cath and possible PTCA or stent were discussed with the patient. The risk of the procedure include but are not limited to a small risk of injury to the vessel, abnormal heart rhythm, stroke, heart attack, need for emergent surgery, contrast reaction, restenosis, infection, or . The patient voices understanding, agrees with the plan, and desires to proceed with the heart catheterization. Heart cath will be done tomorrow at about 1030 We will start on carvedilol 3.125 mg p.o. twice daily We will give some additional Lovenox to equal about 100 mg subcu Give an additional aspirin We will make sure she is a proton pump inhibitor Assessment and plan March 27, 2017: Based on this study, the patient's chest pain is not due to fixed, obstructive coronary disease. I suspect it is either GI or muscle skeletal related. The plan at this point would be to treat empirically for these, reassure her, discharge her tomorrow, and see her back in follow-up. If further outpatient evaluation is needed, it could be done. Mainly will give reassurance. Meanwhile, she does have mild, nonobstructive coronary disease. We will treat these findings by optimizing risk factor management. The patient will be on antiplatelet medications to include aspirin indefinitely . Follow-up will be scheduled. Assessment and plan March 28, 2017: Less chest pain With some palpitations she feels a sensation in her chest Her LDL is 116. Will start on generic Crestor 5 mg p.o. nightly We will monitor today, ambulate, and possibly home tomorrow. (2) Diabetes Status: Chronic (3) Hypertension Status: Chronic Cardiology - PN: Subj Interval history: Chain Carrier: New to cardiology PCP: None Summary: Ms. Levin is a 56 year old female who says she has seen a milieu therapist more than 10 years ago, she is not sure who it was. She says she did have a stress test done at that time that she was told was normal. She denies ever having had a heart catheterization done. She has a history of hypertension and diabetes. Family history is significant for CAD, hypertension , and diabetes. She reports she is a lifetime non-smoker. Ms. Levin reports she has been having chest discomfort and shortness of breath off and on for about 2 weeks. This morning the pain woke her up, was more severe, and lasted longer. She describes it as a spasm in the center of her chest that would get her back. She can identify no alleviators or triggers at home. She rated a 9 on a scale of 1-10. This pain was also associated with shortness of breath, cough, nausea, and palpitations. She also reports having had a headache this morning. She presented to the emergency department for further evaluation. Cardiac biomarkers have been negative. EKG did not indicate an acute MA. She was given Nitro-Bid ointment in the emergency department, she states this did improve her pain. March 28, 2017: Ms. Levin underwent heart catheterization yesterday. It did not indicate any fixed obstructive coronary disease. Right groin today is soft without evidence of bleeding or hematoma, good pedal pulses. She denies any chest pain or shortness of breath. We will schedule follow-up in the office in 4-6 weeks. She will be discharged home on Crestor 5 mg daily as well as a baby aspirin daily. Review of systems: Cardiovascular: Denies chest pain. Respiratory: Denies shortness of breath. Exam (Progress Note) - Constitutional Vitals: Period Temp Pulse Resp BP Sys/Andre Pulse Ox Last 24 Hr 96.9 F-98.7 F 59-96 18-20 112-145/57-78 91-97 General appearance: no acute distress, over weight - Head Head exam: Absent: abrasion, hematoma - Eye Eye exam: Absent: periorbital swelling, laceration to eyelids - Respiratory Respiratory exam: Present: clear to auscultation bilaterally. Absent: accessory muscle use, chest wall tenderness - Cardiovascular Cardiovascular exam: Present: regular rate and rhythm - GI/Abdominal GI/Abdominal exam: Present: normal bowel sounds, soft. Absent: distended, tenderness - Extremities Exam Extremities exam: Present: other (Right groin soft without evidence of bleeding or hematoma). Absent: edema - Neurological Exam Neurological exam: Present: alert, oriented X3 - Psychiatric Psychiatric exam: Present: normal affect, normal mood - Skin Skin exam: Present: warm, dry Result/EKG - Labs CBC & BMP: 03/28/17 03:45 03/28/17 03:45 Lab Results: I have reviewed the past 24 hour labs Labs: Laboratory Results - last 24 hr 03/27/17 03/27/17 03/27/17 13:41 15:27 18:32 WBC RBC Hgb Hct MCV MCH MCHC RDW Plt Count MPV Neut % (Auto) Lymph % (Auto) Stanley % (Auto) Eos % (Auto) Baso % (Auto) Neut # (Auto) Lymph # (Auto) Stanley # (Auto) Eos # (Auto) Baso # (Auto) Immature Gran % Nucleated RBC % Immature Gran # Nucleated RBCs # Immature Plt Fraction Sodium Potassium Chloride Carbon Dioxide Anion Gap BUN Creatinine GFR Calculation BUN/Creatinine Ratio Glucose POC Glucose 270 H 330 H 407 H Calculated Osmolality Calcium Magnesium 03/27/17 03/28/17 03/28/17 21:59 03:45 03:45 WBC 7.2 RBC 4.69 Hgb 14.0 Hct 41.9 MCV 89.3 MCH 30 MCHC 33.4 RDW 12.0 Plt Count 179 D MPV 11.4 Neut % (Auto) 48.7 Lymph % (Auto) 42.9 Stanley % (Auto) 7.6 Eos % (Auto) 0.3 Baso % (Auto) 0.1 Neut # (Auto) 3.5 Lymph # (Auto) 3.1 Stanley # (Auto) 0.6 Eos # (Auto) 0.0 Baso # (Auto) 0.0 Immature Gran % 0.4 Nucleated RBC % 0.0 Immature Gran # 0.03 Nucleated RBCs # 0.00 Immature Plt Fraction 0.0 Sodium Potassium Chloride Carbon Dioxide Anion Gap BUN Creatinine GFR Calculation BUN/Creatinine Ratio Glucose POC Glucose 310 H Calculated Osmolality Calcium Magnesium 1.9 03/28/17 03/28/17 03:45 07:36 WBC RBC Hgb Hct MCV MCH MCHC RDW Plt Count MPV Neut % (Auto) Lymph % (Auto) Stanley % (Auto) Eos % (Auto) Baso % (Auto) Neut # (Auto) Lymph # (Auto) Stanley # (Auto) Eos # (Auto) Baso # (Auto) Immature Gran % Nucleated RBC % Immature Gran # Nucleated RBCs # Immature Plt Fraction Sodium 138 Potassium 4.2 Chloride 106 Carbon Dioxide 25 Anion Gap 11.2 BUN 13 Creatinine 0.30 L GFR Calculation 154 BUN/Creatinine Ratio 43.00 H Glucose 272 H POC Glucose 261 H Calculated Osmolality 284.7 Calcium 8.4 L Magnesium - EKG EKG results: interpreted by me EKG shows: sinus rhythm Quality Measures - VTE Contraindication to Pharmacological VTE Prophylaxis: High Risk of Bleeding Specialty Discharge - Follow Up or Referrals Follow up with: George Quinn MD [Physician] - 04/24/17 2:20 pm (4-6 weeks) I, George Quinn MD, personally performed the services described in this documentation, ascribed by Yasmin Marie RN in my presence, and it is both accurate and complete [id number] .
--- NOTE | 2017-03-29 14:06 | Cardiology Progress Note ---
I, Yasmin Marie RN, am scribing for, and in the presence of, George Quinn MD 14:05. Assessment and Plan (1) Chest pain Status: Acute Assessment and plan: Initial assessment and plan March 26, 2017: Many features of her chest pain sound like progressive angina Response to nitroglycerin, mid chest, tightness I discussed the risk and benefits of evaluating either with the heart cath or treadmill/Cardiolite. She and her wants a heart cath Left heart cath and possible PTCA or stent were discussed with the patient. The risk of the procedure include but are not limited to a small risk of injury to the vessel, abnormal heart rhythm, stroke, heart attack, need for emergent surgery, contrast reaction, restenosis, infection, or . The patient voices understanding, agrees with the plan, and desires to proceed with the heart catheterization. Heart cath will be done tomorrow at about 1030 We will start on carvedilol 3.125 mg p.o. twice daily We will give some additional Lovenox to equal about 100 mg subcu Give an additional aspirin We will make sure she is a proton pump inhibitor Assessment and plan March 27, 2017: Based on this study, the patient's chest pain is not due to fixed, obstructive coronary disease. I suspect it is either GI or muscle skeletal related. The plan at this point would be to treat empirically for these, reassure her, discharge her tomorrow, and see her back in follow-up. If further outpatient evaluation is needed, it could be done. Mainly will give reassurance. Meanwhile, she does have mild, nonobstructive coronary disease. We will treat these findings by optimizing risk factor management. The patient will be on antiplatelet medications to include aspirin indefinitely . Follow-up will be scheduled. Assessment and plan March 29, 2017: Some 68 beats which causes chest sensation Dr. Miller increase the carvedilol to 6.25 mg p.o. twice daily. She is now bradycardic We will reduce the carvedilol to 3.5 mg p.o. twice daily. Also will start on sertraline 25 mg 1 now then 1 nightly I reassured her that these symptoms that were having are not serious. There are PACs with probably triggered panic attacks Home today okay with me with follow-up. I will see her back in about 4-6 weeks or sooner if needed Thank you for allowing me to participate in this patient's care (2) Diabetes Status: Chronic (3) Hypertension Status: Chronic Cardiology - PN: Subj Interval history: Food Service Aide: New to cardiology PCP: None Summary: Ms. Levin is a 56 year old female who says she has seen a middle school resource teacher more than 10 years ago, she is not sure who it was. She says she did have a stress test done at that time that she was told was normal. She denies ever having had a heart catheterization done. She has a history of hypertension and diabetes. Family history is significant for CAD, hypertension , and diabetes. She reports she is a lifetime non-smoker. Ms. Levin reports she has been having chest discomfort and shortness of breath off and on for about 2 weeks. This morning the pain woke her up, was more severe, and lasted longer. She describes it as a spasm in the center of her chest that would get her back. She can identify no alleviators or triggers at home. She rated a 9 on a scale of 1-10. This pain was also associated with shortness of breath, cough, nausea, and palpitations. She also reports having had a headache this morning. She presented to the emergency department for further evaluation. Cardiac biomarkers have been negative. EKG did not indicate an acute CA. She was given Nitro-Bid ointment in the emergency department, she states this did improve her pain. March 28, 2017: Ms. Levin underwent heart catheterization yesterday. It did not indicate any fixed obstructive coronary disease. Right groin today is soft without evidence of bleeding or hematoma, good pedal pulses. She denies any chest pain or shortness of breath. We will schedule follow-up in the office in 4-6 weeks. She will be discharged home on Crestor 5 mg daily as well as a baby aspirin daily. March 29, 2017: Ms. Levin is seen sitting up in chair in no acute distress. She denies any chest pain or shortness of breath. Right groin is stable. She does report having 2 episodes palpitations, one last night and one earlier this morning. According to the nurse, cribber the time showed sinus rhythm with PACs. The nurse also notes that patient was very anxious at the time. Dr. Miller was notified and carvedilol was increased to 6.25 mg twice daily. She denies any palpitations at the present time. Vital signs have been stable. Review of systems: Cardiovascular: Denies chest pain, reports episodes of palpitations. Respiratory: Denies shortness of breath. Exam (Progress Note) - Constitutional Vitals: Period Temp Pulse Resp BP Sys/Andre Pulse Ox Last 24 Hr 96 F-98.7 F 50-70 18-20 106-136/54-82 91-99 Exam: eneral appearance: no acute distress, over weight - Head Head exam: Absent: abrasion, hematoma - Eye Eye exam: Absent: periorbital swelling, laceration to eyelids - Respiratory Respiratory exam: Present: clear to auscultation bilaterally. Absent: accessory muscle use, chest wall tenderness - Cardiovascular Cardiovascular exam: Present: regular rate and rhythm - GI/Abdominal GI/Abdominal exam: Present: normal bowel sounds, soft. Absent: distended, tenderness - Extremities Exam Extremities exam: Present: other (Right groin soft without evidence of bleeding or hematoma). Absent: edema - Neurological Exam Neurological exam: Present: alert, oriented X3 - Psychiatric Psychiatric exam: Present: normal affect, normal mood - Skin Skin exam: Present: warm, dry Result/EKG - Labs CBC & BMP: 03/28/17 03:45 03/28/17 03:45 Lab Results: I have reviewed the past 24 hour labs Labs: Laboratory Results - last 24 hr 03/28/17 03/28/17 03/28/17 11:43 15:37 18:42 POC Glucose 280 H 222 H 319 H 03/29/17 07:24 POC Glucose 296 H - EKG EKG results: interpreted by me EKG shows: sinus rhythm (With PACs) Quality Measures - VTE Contraindication to Pharmacological VTE Prophylaxis: High Risk of Bleeding Specialty Discharge - Follow Up or Referrals Follow up with: George Quinn MD [Physician] - 04/24/17 2:20 pm (4-6 weeks) Kai Pedersen Dale, MD, personally performed the services described in this documentation, ascribed by Yasmin Marie RN in my presence, and it is both accurate and complete .
== END 2017-03-29 13:07 | disposition home or self-care (01) ==
LOC: N.EDINP 08:41 → N.ED 08:41 → N.4E 11:55
PROVIDERS: ADMIT Internal Medicine; ATTEND Internal Medicine
PROC: CLCCHCL (ICD-10-PCS; 2017-03-27 10:45)

== ENCOUNTER 2020-09-23 17:38 | Observation (INO) ==
[2020-09-23] MEDS ORDERED: ONDANSETRON 4 MG/2 ML VIAL IV STA (18:24)
[2020-09-23] MEDS ORDERED: MORPHINE 4 MG/1 ML VIAL IV STA (18:24)
[2020-09-23] MEDS ORDERED: FUROSEMIDE 40 MG/4 ML VIAL IV STA (18:24)
[2020-09-23] MEDS ORDERED: NITROGLYCERIN 2% OINT 1 INCH/GM PACK TOP STA (18:24)
[2020-09-23] MEDS ORDERED: ASPIRIN 325 MG TABLET PO STA (18:24)
[2020-09-23 18:36] LABS: Basophils % 0.4 % (0.0-0.8); Eosinophils % 0.4 % (0.00-10.9); Hematocrit 38.4 VOL% (35.7-47.0); Immature Granulocytes % 0.5 %; Immature Granulocytes Absolute 0.04 #; Lymphocytes # 2.1 10*3/uL (1.4-4.0); Lymphocytes % 27.8 % (21.3-54.2); Mean Corpuscular HGB Conc 31.3 GM/DL (32-36); Mean Corpuscular Volume 84.4 FL (87-102); Mean Platelet Volume 10.3 FL (9.6-12.0); Monocytes % 5.7 % (1.7-12.7); Neutrophils % 65.2 % (38.7-73.9); Platelet Count 228 T/CUMM (130-400); Red Blood Count 4.55 MC/CUMM (3.8-5.5); Red Cell Distribution Width 14.6 % (9.3-17.3); White Blood Count 7.7 T/CUMM (4-12)
[2020-09-23 18:44] LABS: INR 0.9; PT Patient Result 10.1 SECS (9.8-11.9)
[2020-09-23 18:56] LABS: Albumin 3.7 G/DL (3.4-5.0); Bilirubin,Total 0.4 MG/DL (0.2-1.0); Calcium 9.1 MG/DL (8.5-10.1); Osmolality,Calculated 284.3 MOS/KG (273-304); Potassium 3.9 MMOL/L (3.5-5.1); Total Protein 7.1 G/DL (6.4-8.2)
[2020-09-23 19:53] LABS: Bilirubin,Urine Negative (Negative); Blood, Urine Negative (Negative); Glucose,Urine (UA) Negative (Negative); Ketones,Urine Negative (Negative); Mucus,Urine Occasional /LPF (Occasional); Nitrite,Urine Negative (Negative); Protein,Urine 30 MG/DL; RBC,Urine 8 /HPF (0-4); Urine Appearance CLOUDY (Clear); Urine Color Yellow (Yellow); Urine Specific Gravity 1.027 (1.001-1.035); WBC,Urine 2 /HPF (0-6)
[2020-09-23] MEDS ORDERED: cefTRIAXone 1,000 MG in SODIUM CHLORIDE 0.9% 100 ML IV STA (20:07)
[2020-09-23] MEDS ORDERED: DEXTROSE 50% 25 GM/50 ML VIAL IV PRN ×2 (20:14)
[2020-09-23] MEDS ORDERED: GLUCAGON 1 MG VIAL IM PRN ×2 (20:14)
[2020-09-23] MEDS ORDERED: ONDANSETRON 4 MG/2 ML VIAL IV PRN (20:14)
[2020-09-23] MEDS ORDERED: MAGNESIUM SULF RIDER 2 GM in PREMIX 1 EACH IV PRN (20:14)
[2020-09-23] MEDS ORDERED: MORPHINE 4 MG/1 ML VIAL IV PRN (20:14)
[2020-09-23] MEDS ORDERED: ACETAMINOPHEN 325 MG TABLET PO PRN (20:14)
[2020-09-23] MEDS ORDERED: MAGNESIUM SULF RIDER 4 GM in PREMIX 1 EACH IV PRN (20:14)
[2020-09-23] MEDS: ENOXAPARIN 40 MG/0.4 ML SYRINGE SUBCUT SCH (20:42)
[2020-09-24] MEDS: PRAMIPEXOLE 0.25 MG TABLET PO SCH ×3 (00:13→21:08)
[2020-09-24] MEDS: ROSUVASTATIN 10 MG TABLET PO SCH ×2 (00:14→21:07)
[2020-09-24] MEDS: GABAPENTIN 600 MG TABLET PO SCH ×3 (00:14→21:08)
[2020-09-24] MEDS: SERTRALINE 50 MG TABLET PO SCH ×2 (00:14→21:07)
[2020-09-24] MEDS: carvediloL 3.125 MG TABLET PO SCH ×3 (00:15→21:07)
[2020-09-24] MEDS: INSULIN REGULAR 100 UNIT/ML SUBCUT SCH ×5 (00:15→21:14)
[2020-09-24 02:52] LABS: Albumin 3.1 G/DL (3.4-5.0); Bilirubin,Total 0.7 MG/DL (0.2-1.0); Calcium 8.5 MG/DL (8.5-10.1); Osmolality,Calculated 286.4 MOS/KG (273-304); Potassium 3.6 MMOL/L (3.5-5.1); Risk Ratio 2.88; Total Protein 6.3 G/DL (6.4-8.2); VLDL CHOLESTEROL 20.8 MG/DL
[2020-09-24] MEDS: FUROSEMIDE 40 MG/4 ML VIAL IV SCH ×2 (08:39→16:47)
[2020-09-24] MEDS: PANTOPRAZOLE 40 MG TABLET PO SCH (08:40)
[2020-09-24] MEDS: CHOLECALCIFEROL 1,000 UNIT TABLET PO SCH (08:40)
[2020-09-24] MEDS: OXYBUTYNIN XL 10 MG TABLET PO SCH (08:40)
[2020-09-24] MEDS: CETIRIZINE 10 MG TABLET PO SCH (08:41)
[2020-09-24] MEDS ORDERED: NON-FORMULARY MEDICATION (Esomeprazole Magnesium 20 mg Tablet,Delayed Release (Dr/Ec)) PO SCH (09:00)
[2020-09-24] MEDS: cefTRIAXone 1,000 MG in SYRINGE 1 EACH IV SCH (09:53)
[2020-09-24] MEDS ORDERED: NITROGLYCERIN SL 0.4 MG TABLET SL PRN (11:09)
[2020-09-24] MEDS: ASPIRIN EC 81 MG TABLET PO SCH (12:30)
[2020-09-24] MEDS: ENOXAPARIN 40 MG/0.4 ML SYRINGE SUBCUT SCH (21:28)
[2020-09-25 06:04] LABS: Basophils % 0.3 % (0.0-0.8); Eosinophils % 0.4 % (0.00-10.9); Hematocrit 36.1 VOL% (35.7-47.0); Hemoglobin 11.3 GM/DL (12.0-16.0); Immature Granulocytes % 0.4 %; Immature Granulocytes Absolute 0.03 #; Lymphocytes # 1.9 10*3/uL (1.4-4.0); Lymphocytes % 23.4 % (21.3-54.2); Mean Corpuscular HGB Conc 31.3 GM/DL (32-36); Mean Corpuscular Volume 84.7 FL (87-102); Mean Platelet Volume 10.8 FL (9.6-12.0); Monocytes % 8.5 % (1.7-12.7); Platelet Count 222 T/CUMM (130-400); Red Blood Count 4.26 MC/CUMM (3.8-5.5); Red Cell Distribution Width 14.6 % (9.3-17.3)
[2020-09-25 06:33] LABS: Osmolality,Calculated 287.4 MOS/KG (273-304); Potassium 3.9 MMOL/L (3.5-5.1)
[2020-09-25 07:32] VITALS: BP 131/55
[2020-09-25] MEDS: ASPIRIN EC 81 MG TABLET PO SCH (08:18)
[2020-09-25] MEDS: INSULIN REGULAR 100 UNIT/ML SUBCUT SCH (08:18)
[2020-09-25] MEDS: CETIRIZINE 10 MG TABLET PO SCH (08:19)
[2020-09-25] MEDS: CHOLECALCIFEROL 1,000 UNIT TABLET PO SCH (08:19)
[2020-09-25] MEDS: GABAPENTIN 600 MG TABLET PO SCH (08:19)
[2020-09-25] MEDS: PRAMIPEXOLE 0.25 MG TABLET PO SCH (08:19)
[2020-09-25] MEDS: carvediloL 3.125 MG TABLET PO SCH (08:19)
[2020-09-25] MEDS: PANTOPRAZOLE 40 MG TABLET PO SCH (08:19)
[2020-09-25] MEDS: OXYBUTYNIN XL 10 MG TABLET PO SCH (08:19)
[2020-09-25] MEDS: cefTRIAXone 1,000 MG in SYRINGE 1 EACH IV SCH (08:20)
[2020-09-25] MEDS: FUROSEMIDE 40 MG/4 ML VIAL IV SCH (08:20)
[2020-09-25] MEDS ORDERED: MULTIVITAMIN (BEROCCA) TABLET PO SCH (09:00)
[2020-09-25] MEDS ORDERED: PNEUMOCOCCAL VACCINE (23 VALENT) 0.5 ML VIAL IM ONE (09:00)
== END 2020-09-25 11:01 | disposition home or self-care (01) ==
LOC: N.EDINP 17:38 → N.ED 17:38 → N.5E 23:21
PROVIDERS: ADMIT Emergency Medicine; ATTEND Emergency Medicine

== ENCOUNTER 2022-01-18 21:45 | Observation (INO) ==
[2022-01-18] MEDS ORDERED: FUROSEMIDE 40 MG/4 ML VIAL IV STA (22:20)
[2022-01-18] MEDS ORDERED: hydrALAZINE 20 MG/1 ML VIAL IV STA (22:34)
[2022-01-18 22:59] LABS: Basophils % 0.1 % (0.0-0.8); Eosinophils % 0.3 % (0.00-10.9); Hemoglobin 12.3 GM/DL (12.0-16.0); Immature Granulocytes % 0.4 %; Immature Granulocytes Absolute 0.03 #; Lymphocytes # 2.1 10*3/uL (1.4-4.0); Lymphocytes % 26.2 % (21.3-54.2); Mean Corpuscular HGB Conc 30.8 GM/DL (32-36); Mean Corpuscular Volume 89.1 FL (87-102); Monocytes # 0.5 10*3/uL (0.11-0.8); Monocytes % 6.1 % (1.7-12.7); Neutrophils % 66.9 % (38.7-73.9); Platelet Count 231 T/CUMM (130-400); Red Blood Count 4.49 MC/CUMM (3.8-5.5); Red Cell Distribution Width 13.2 % (9.3-17.3); White Blood Count 7.8 T/CUMM (4-12)
[2022-01-18 23:12] LABS: Alanine Aminotransferase 24 U/L (13-56); Albumin 3.3 G/DL (3.4-5.0); Alkaline Phosphatase 105 U/L (45-117); Aspartate Amino Transferase 12 U/L (0-37); Bilirubin,Total < 0.39 MG/DL (0.20-1.00); Blood Urea Nitrogen 18 MG/DL (7-18); Calcium 8.7 MG/DL (8.5-10.1); Carbon Dioxide 26 MMOL/L (21-32); Chloride 109 MMOL/L (98-107); Glucose 312 MG/DL (74-106); Osmolality,Calculated 294.3 MOS/KG (273-304); Potassium 4.4 MMOL/L (3.5-5.1); Sodium 141 MMOL/L (136-145); Total Protein 6.7 G/DL (6.4-8.2)
[2022-01-19] MEDS ORDERED: hydrALAZINE 20 MG/1 ML VIAL IV STA (01:10)
[2022-01-19] MEDS ORDERED: ACETAMINOPHEN 325 MG TABLET PO PRN (02:18)
[2022-01-19] MEDS ORDERED: ONDANSETRON 4 MG/2 ML VIAL IV PRN (02:18)
[2022-01-19] MEDS ORDERED: DEXTROSE 10% 250 ML BAG IV PRN ×2 (02:18→13:09)
[2022-01-19] MEDS ORDERED: MORPHINE 2 MG/1 ML SYRINGE IV PRN (02:18)
[2022-01-19] MEDS ORDERED: GLUCAGON 1 MG VIAL IM PRN ×2 (02:18→13:03)
[2022-01-19] MEDS ORDERED: ASPIRIN 325 MG TABLET PO STA (02:42)
[2022-01-19] MEDS ORDERED: CETIRIZINE 10 MG TABLET PO PRN (02:54)
[2022-01-19] MEDS: INSULIN LISPRO 100 UNIT/ML SUBCUT SCH ×4 (08:17→20:23)
[2022-01-19] MEDS ORDERED: LOSARTAN 25 MG TABLET PO SCH (09:00)
[2022-01-19] MEDS ORDERED: CYANOCOBALAMIN 1000 MCG/1 ML VIAL IM SCH (09:00)
[2022-01-19] MEDS: ENOXAPARIN 40 MG/0.4 ML SYRINGE SUBCUT SCH (09:06)
[2022-01-19] MEDS: GABAPENTIN 600 MG TABLET PO SCH ×2 (09:07→20:23)
[2022-01-19] MEDS: ASPIRIN EC 81 MG TABLET PO SCH (09:07)
[2022-01-19] MEDS: PANTOPRAZOLE 40 MG TABLET PO SCH (09:07)
[2022-01-19] MEDS: FUROSEMIDE 40 MG/4 ML VIAL IV SCH (09:07)
[2022-01-19] MEDS: CHOLECALCIFEROL 1,000 UNIT TABLET PO SCH (09:07)
[2022-01-19] MEDS: PRAMIPEXOLE 0.25 MG TABLET PO SCH ×2 (09:07→20:22)
[2022-01-19] MEDS: OXYBUTYNIN XL 10 MG TABLET PO SCH (09:07)
[2022-01-19] MEDS: carvediloL 3.125 MG TABLET PO SCH ×2 (09:07→20:22)
[2022-01-19] MEDS: cefTRIAXone 2,000 MG in SODIUM CHLORIDE 0.9% 100 ML IV SCH (09:08)
[2022-01-19] MEDS ORDERED: PNEUMOCOCCAL VACCINE (23 VALENT) 0.5 ML VIAL IM ONE (09:39)
[2022-01-19] MEDS: SERTRALINE 50 MG TABLET PO SCH (20:22)
[2022-01-19] MEDS: LOSARTAN 50 MG TABLET PO SCH (20:23)
[2022-01-19] MEDS: INSULIN GLARGINE 100 UNIT/ML SUBCUT SCH (21:15)
[2022-01-20 05:26] LABS: Basophils % 0.1 % (0.0-0.8); Eosinophils % 0.1 % (0.00-10.9); Hematocrit 38.5 VOL% (35.7-47.0); Immature Granulocytes % 0.4 %; Immature Granulocytes Absolute 0.03 #; Lymphocytes % 28.9 % (21.3-54.2); Mean Corpuscular HGB Conc 31.2 GM/DL (32-36); Mean Corpuscular Volume 88.3 FL (87-102); Monocytes # 0.6 10*3/uL (0.11-0.8); Monocytes % 8.1 % (1.7-12.7); Neutrophils % 62.4 % (38.7-73.9); Platelet Count 243 T/CUMM (130-400); Red Blood Count 4.36 MC/CUMM (3.8-5.5); Red Cell Distribution Width 13.4 % (9.3-17.3)
[2022-01-20 05:44] LABS: Albumin 2.9 G/DL (3.4-5.0); Bilirubin,Total 0.4 MG/DL (0.20-1.00); Calcium 8.7 MG/DL (8.5-10.1); Osmolality,Calculated 286.4 MOS/KG (273-304); Potassium 4.3 MMOL/L (3.5-5.1); Total Protein 6.4 G/DL (6.4-8.2)
[2022-01-20] MEDS: INSULIN LISPRO 100 UNIT/ML SUBCUT SCH ×4 (08:53→20:04)
[2022-01-20] MEDS: cefTRIAXone 2,000 MG in SODIUM CHLORIDE 0.9% 100 ML IV SCH (08:53)
[2022-01-20] MEDS: ENOXAPARIN 40 MG/0.4 ML SYRINGE SUBCUT SCH (09:03)
[2022-01-20] MEDS: PRAMIPEXOLE 0.25 MG TABLET PO SCH ×2 (09:04→20:02)
[2022-01-20] MEDS: FUROSEMIDE 40 MG/4 ML VIAL IV SCH (09:05)
[2022-01-20] MEDS: LOSARTAN 50 MG TABLET PO SCH ×2 (09:05→20:04)
[2022-01-20] MEDS: GABAPENTIN 600 MG TABLET PO SCH ×2 (09:05→20:02)
[2022-01-20] MEDS: CHOLECALCIFEROL 1,000 UNIT TABLET PO SCH (09:05)
[2022-01-20] MEDS: PANTOPRAZOLE 40 MG TABLET PO SCH (09:05)
[2022-01-20] MEDS: OXYBUTYNIN XL 10 MG TABLET PO SCH (09:05)
[2022-01-20] MEDS: ASPIRIN EC 81 MG TABLET PO SCH (09:05)
[2022-01-20] MEDS: carvediloL 3.125 MG TABLET PO SCH ×2 (09:05→20:02)
[2022-01-20] MEDS ORDERED: hydrALAZINE 20 MG/1 ML VIAL IV ONE (11:27)
[2022-01-20] MEDS: SERTRALINE 50 MG TABLET PO SCH (20:02)
[2022-01-20] MEDS: INSULIN GLARGINE 100 UNIT/ML SUBCUT SCH (20:04)
[2022-01-21 05:31] LABS: Basophils % 0.1 % (0.0-0.8); Eosinophils % 0.3 % (0.00-10.9); Hematocrit 38.5 VOL% (35.7-47.0); Hemoglobin 11.8 GM/DL (12.0-16.0); Immature Granulocytes % 0.3 %; Immature Granulocytes Absolute 0.02 #; Lymphocytes # 2.3 10*3/uL (1.4-4.0); Lymphocytes % 31.8 % (21.3-54.2); Mean Corpuscular HGB Conc 30.6 GM/DL (32-36); Mean Corpuscular Volume 88.9 FL (87-102); Mean Platelet Volume 10.2 FL (9.6-12.0); Monocytes # 0.6 10*3/uL (0.11-0.8); Monocytes % 8.4 % (1.7-12.7); Neutrophils % 59.1 % (38.7-73.9); Platelet Count 239 T/CUMM (130-400); Red Blood Count 4.33 MC/CUMM (3.8-5.5); Red Cell Distribution Width 13.4 % (9.3-17.3); White Blood Count 7.2 T/CUMM (4-12)
[2022-01-21 05:57] LABS: Alanine Aminotransferase 20 U/L (13-56); Albumin 2.7 G/DL (3.4-5.0); Alkaline Phosphatase 77 U/L (45-117); Aspartate Amino Transferase 7 U/L (0-37); Bilirubin,Total < 0.39 MG/DL (0.20-1.00); Blood Urea Nitrogen 26 MG/DL (7-18); Calcium 8.9 MG/DL (8.5-10.1); Carbon Dioxide 29 MMOL/L (21-32); Chloride 105 MMOL/L (98-107); Glucose 301 MG/DL (74-106); Osmolality,Calculated 294.4 MOS/KG (273-304); Potassium 4.5 MMOL/L (3.5-5.1); Sodium 140 MMOL/L (136-145); Total Protein 6.1 G/DL (6.4-8.2)
[2022-01-21 08:01] VITALS: BP 177/77
[2022-01-21] MEDS: ASPIRIN EC 81 MG TABLET PO SCH (08:17)
[2022-01-21] MEDS: OXYBUTYNIN XL 10 MG TABLET PO SCH (08:17)
[2022-01-21] MEDS: CHOLECALCIFEROL 1,000 UNIT TABLET PO SCH (08:18)
[2022-01-21] MEDS: PANTOPRAZOLE 40 MG TABLET PO SCH (08:18)
[2022-01-21] MEDS: PRAMIPEXOLE 0.25 MG TABLET PO SCH (08:18)
[2022-01-21] MEDS: carvediloL 3.125 MG TABLET PO SCH (08:18)
[2022-01-21] MEDS: LOSARTAN 50 MG TABLET PO SCH (08:18)
[2022-01-21] MEDS: GABAPENTIN 600 MG TABLET PO SCH (08:19)
[2022-01-21] MEDS: FUROSEMIDE 40 MG/4 ML VIAL IV SCH (08:19)
[2022-01-21] MEDS: cefTRIAXone 2,000 MG in SODIUM CHLORIDE 0.9% 100 ML IV SCH (08:19)
[2022-01-21] MEDS: ENOXAPARIN 40 MG/0.4 ML SYRINGE SUBCUT SCH (08:21)
[2022-01-21] MEDS: INSULIN LISPRO 100 UNIT/ML SUBCUT SCH ×2 (08:21→11:16)
== END 2022-01-21 11:25 | disposition home or self-care (01) ==
LOC: N.ED 21:45 → N.EDINP 21:45 → N.2W 01-19 08:25
PROVIDERS: ADMIT Family Medicine; ATTEND Family Medicine